=== PATIENT | female | born 1955 | race Caucasian/White ===

== ENCOUNTER 2018-01-20 05:50 | Day surgery (SDC) | payer OTHER ==
[~2018-01-20] VITALS: Ht 61 cm; Wt 5.0 kg
[~2018-01-20 05:50] MED LIST: FORTAMET1000 MG PO; GLIPIZIDE ER2.5 MG PO; LOSARTAN POTASS50 MG PO; PEPCID40 MG PO; PROZAC20 MG PO; VOLTAREN-XR100 MG PO; WELLBUTRIN XL300 MG PO
[2018-01-21] MEDS ORDERED: PERCOCET 5-3251 EACH PO (09:17)
[2018-01-21] MEDS ORDERED: LEVOTHYROXINE50 MCG PO (09:18)
== END 2018-01-21 08:00 | disposition home or self-care (01) ==
LOC: CIR.AMB 05:50 → SURG 10:10 → O/R 10:10 → CIR.AMB 13:00 → SURG 13:57 → O/R 13:57 → SURG 20:51 → CIR.AMB 01-21 08:00 → O/R 01-21 09:40 → SURG 01-21 09:40
DX: C73 Malignant neoplasm of thyroid gland (principal); E11.9 Type 2 diabetes mellitus without complications; I11.9 Hypertensive heart disease without heart failure; G47.33 Obstructive sleep apnea (adult) (pediatric); Z85.3 Personal history of malignant neoplasm of breast; E66.01 Morbid (severe) obesity due to excess calories